=== PATIENT | male | born 1995 | race Two or more races ===

== ENCOUNTER 2018-11-09 17:27 | Emergency (ER) | payer OTHER ==
[2018-11-09 18:01] VITALS: BP 113/51; PULSE 63; TEMP 98.2; BMI 23.0
--- NOTE | 2018-11-09 18:06 | PDOC ---
Rapid Medical Evaluation Chief Complaint: Rash Time Seen by Provider: 11/09/18 17:57 Medical Evaluation: Allergies Allergy/AdvReac Type Severity Reaction Status Date / Time No Known Allergies Allergy Verified 11/09/18 17:54 Vital Signs Temp Pulse Resp BP Pulse Ox 98.2 F 63 17 113/51 L 99 11/09/18 17:54 11/09/18 17:54 11/09/18 17:54 11/09/18 17:54 11/09/18 17:54 11/09/18 18:04 The patient presents with chief complaint of rash x 1 week. States seen by pmd who gave them hydrocortisone but rash still present Pertinent physical exam NAD lungs even and unlabored skin: rash to trunk with scaly center The patient will proceed to the ED Discharge Disposition - Diagnosis Rash - Referrals - Patient Instructions - Post Discharge Activity
--- NOTE | 2018-11-09 19:56 | PDOC ---
History of Present Illness - General Chief Complaint: Rash Stated Complaint: RASH Time Seen by Provider: 11/09/18 17:57 History Source: Patient, Parent(s) - History of Present Illness Initial Comments: 11/09/18 19:58 23 YEAR OLD MALE WITH NONSPECIFIC RASH TO TRUUNK, CHEST, ABDOMEN AND THIGH WORSENING OVER THE LAST 1 WEEK. DENIES FEVER/ CHILLS. Past History - Past Medical History Allergies/Adverse Reactions: Allergies Allergy/AdvReac Type Severity Reaction Status Date / Time No Known Allergies Allergy Verified 11/09/18 17:54 Home Medications: Ambulatory Orders Calamine 8% Topical Lotion - 1 applic TP TID PRN #1 bottle 11/09/18 Diphenhydramine HCl [Benadryl -] 25 mg PO Q8H PRN #21 capsule 11/09/18 COPD: No - Immunization History Immunization Up to Date: Yes - Suicide/Smoking/Psychosocial Hx Smoking History: Never smoked Information on smoking cessation initiated: No Hx Alcohol Use: No Drug/Substance Use Hx: No *Physical Exam - Vital Signs Last Vital Signs Temp Pulse Resp BP Pulse Ox 98.2 F 63 17 113/51 L 99 11/09/18 17:54 11/09/18 17:54 11/09/18 17:54 11/09/18 17:54 11/09/18 17:54 - Physical Exam General Appearance: Yes: Appropriately Dressed Extremity: positive: Normal Capillary Refill Integumentary: positive: Rash (PATCHES WITH ERYTHEMA TO trunk, back, chest abdomen, arms and thighs. none to face. ) Neurologic: positive: Fully Oriented, Alert, Normal Mood/Affect Moderate Sedation - Procedure Monitoring Vital Signs: Procedure Monitoring Vital Signs Temperature 98.2 F 11/09/18 17:54 Pulse Rate 63 11/09/18 17:54 Respiratory Rate 17 11/09/18 17:54 Blood Pressure 113/51 L 11/09/18 17:54 O2 Sat by Pulse Oximetry (%) 99 11/09/18 17:54 Progress Note - Progress Note Progress Note: a: NONSPECIFIC RASH LIKELY PYTERIASIS p: SUPPORTIVE CARE DISCUSSED WITH PATIENT patient to follow up with dermatology *DC/Admit/Observation/Transfer Diagnosis at time of Disposition: Rash and nonspecific skin eruption - Discharge Dispostion Disposition: HOME - Prescriptions Prescriptions: Calamine 8% Topical Lotion - 1 applic TP TID PRN #1 bottle PRN Reason: For Itching Diphenhydramine HCl [Benadryl -] 25 mg PO Q8H PRN #21 capsule PRN Reason: For Itching - Referrals Referrals: ON STAFF,NOT [Primary Care Provider] - Jenna Mcintyre MD [Staff Physician] - Call tomorrow - Patient Instructions Printed Discharge Instructions: Pityriasis Rosea Additional Instructions: apply calamine lotion to affected areas you may take benadryl every 8 hours as needed for itching follow up with a splitter operator as soon as possible. - Post Discharge Activity
[2018-11-09] MEDS ORDERED: diphenhydrAMINE HCL 25 MG CAPSULE (FP) PO ONE ×2 (19:58→20:09)
== END 2018-11-09 20:57 | disposition home or self-care (01) ==
LOC: JERFT 17:27
DX: R21 Rash and other nonspecific skin eruption (principal)
CPT/HCPCS: 99281-25